=== PATIENT | female | born 1995 | race Caucasian/White ===

== ENCOUNTER 2019-08-10 07:32 | Inpatient (IN) | payer OTHER ==
[2019-08-10] MEDS ORDERED: RINGERS SOLUTION,LACTATED 1,000 ML IV PRN ×2 (07:47→09:12)
[2019-08-10] MEDS ORDERED: RINGERS SOLUTION,LACTATED 1,000 ML IV ONE (07:47)
[2019-08-10] MEDS ORDERED: CEFAZOLIN SODIUM 2 GM in DEXTROSE 5%-WATER 50 ML IV PRN (07:49)
--- NOTE | 2019-08-10 07:58 | Admission Physical ---
Datetime Report Generated by CPN: 08/10/2019 07:58 CURRENT ADMISSION Chief Complaint: Uterine Contractions; Suspected Ruptured Membranes Indication for Induction: Not Applicable Admit Impression : Term, Intrauterine ; Active Labor; Ruptured Membranes Admit Plan: Admit to Unit; Initiate Section Protocol ALLERGIES Medication Allergies: nickel/SV/rash (08/05/2019) OBSTETRICAL HISTORY EDC: 08/17/2019 00:00 : 1 Para: 0 Term: 0 : 0 SAB: 0 IAB: 0 [place] PHYSICAL EXAM General: Normal HEENT: Normal Neurologic: Normal Thyroid: Deferred Heart: Normal Lungs: Normal Breast: Deferred Back: Normal Abdomen: Normal Genitourinary Exam: Normal Extremities: Normal DTRs: Normal Pelvic Type: Adequate Vital Signs: Reviewed VAGINAL EXAM Dilatation: 6 Effacement: 100 Station: 1 Contraction Comments: q 3 MEMBRANES Membranes: Ruptured Amniotic Fluid Color: Clear FETUS A EGA: 39.0 Monitoring: External US FHR- Baseline: 125 Variability: Moderate 6-25bpm Accelerations: 15X15 Decelerations: None FHR Category: Category I Presentation: Breech Admit Comment: 23yo at 39+0ega presents with regular uterine contractions beginning at 0600 and patient reports that her membranes ruptured at 0710. Clear fluid. Pt is known to be breech. Cvx 6cm and baby buttocks at +1. Obvious rupture of membranes. COnsented for Primary section due to active labor/SROM/Breech presentation. GBS negative. Admit to labor and delivery for Primary section. INFORMED CONSENT Informed Consent Obtained: Vaginal Delivery; Section Delivery; Risks, Benefits and Alternatives Discussed Signature: with User ID: [email or web address]
[2019-08-10] MEDS ORDERED: CEFAZOLIN 1 GM/D5W RTU 2 GM/100 ML RTUPB IV ONE (08:07)
[2019-08-10] MEDS ORDERED: CITRIC ACID/SODIUM CITRATE ORAL SOLN 15 ML UDCUP ONE (08:07)
[2019-08-10] MEDS ORDERED: KETOROLAC TROMETHAMINE INJ/PF 30 MG/1 ML SDV ONE (08:13)
[2019-08-10] MEDS ORDERED: FENTANYL CITRATE INJ/PF 100 MCG/2 ML AMPUL ONE (08:13)
[2019-08-10] MEDS ORDERED: MIDAZOLAM 2 MG/2 ML INJ ONE (08:13)
[2019-08-10] MEDS ORDERED: OXYTOCIN 10 UNIT/ML VIAL ONE (08:13)
[2019-08-10] MEDS ORDERED: PHENYLEPHRINE HCL INJ/PF 10 MG/1 ML SDV ONE (08:13)
[2019-08-10] MEDS ORDERED: EPHEDRINE SULFATE INJ 50 MG/1 ML AMPULE ONE (08:13)
[2019-08-10] MEDS ORDERED: ONDANSETRON HCL INJ/PF 4 MG/2 ML SDV ONE (08:14)
[2019-08-10] MEDS ORDERED: ACETAMINOPHEN 1,000 MG/100 ML RTUPB IV ONE (08:14)
[2019-08-10] MEDS ORDERED: OXYTOCIN/0.9 % SODIUM CHLORIDE 30 UNIT/500 ML RTUINJ ONE (08:14)
[2019-08-10 08:45] LABS: ABSOLUTE BASOPHILS # (AUTO) 0.1 10^3/uL (0.0-0.2); ABSOLUTE EOSINOPHILS # (AUTO) 0.1 10^3/uL (0.0-0.6); ABSOLUTE LYMPHOCYTES (AUTO) 2.4 10^3/uL (0.5-4.7); ABSOLUTE MONOCYTES (AUTO) 0.7 10^3/uL (0.1-1.4); BASOPHILS % (AUTO) 0.6 % (0-2); EOSINOPHILS % (AUTO) 1.2 % (0-6); HEMOGLOBIN 11.6 g/dL (12.0-15.5); LYMPHOCYTES % (AUTO) 21.2 % (13-45); MEAN CORPUSCULAR HGB CONC 35.3 g/dL (32.0-36.0); MEAN CORPUSCULAR VOLUME 94 fl (80-97); MONOCYTES % (AUTO) 6.1 % (3-13); PLATELET COUNT 184 10^3/uL (150-450); RED BLOOD COUNT 3.53 10^6/uL (3.72-5.28); SEGMENTED NEUTROPHILS % (AUTO) 70.9 % (42-78); TOTAL CELLS COUNTED % (AUTO) 100 %; WHITE BLOOD COUNT 11.3 10^3/uL (4.0-10.5)
[2019-08-10] MEDS ORDERED: ACETAMINOPHEN 1,000 MG/100 ML RTUPB IV PRN (09:12)
[2019-08-10] MEDS ORDERED: OXYTOCIN/0.9 % SODIUM CHLORIDE 30 UNIT/500 ML RTUINJ IV PRN (09:12)
[2019-08-10] MEDS ORDERED: SIMETHICONE 80 MG TAB.CHEW PO PRN (09:12)
[2019-08-10] MEDS ORDERED: MEASLES,MUMPS&RUBELLA VACC/PF 0.5 ML VIAL SUBCUT PRN (09:12)
[2019-08-10] MEDS ORDERED: OXYCODONE-ACETAMINOPHEN 5-325 MG TABLET PO PRN (09:12)
[2019-08-10] MEDS ORDERED: DIPH/PERTUSS(ACELL)/TETANUS VAC/PF 0.5 ML SYR (>=10YO) IM PRN (09:12)
[2019-08-10] MEDS ORDERED: PROMETHAZINE HCL INJ 25 MG/1 ML VIAL IV PRN (09:12)
[2019-08-10] MEDS ORDERED: ACETAMINOPHEN 325 MG TABLET PO PRN (09:12)
[2019-08-10 09:20] LABS: APPEARANCE,URINE CLOUDY; BILIRUBIN,URINE NEGATIVE (NEGATIVE); COLOR,URINE YELLOW; GLUCOSE, URINE NEGATIVE (NEGATIVE); KETONES,URINE NEGATIVE (NEGATIVE); LEUKOCYTE ESTERASE,URINE NEGATIVE (NEGATIVE); NITRITE,URINE NEGATIVE (NEGATIVE); PROTEIN,URINE NEGATIVE (NEGATIVE); URINE SPECIFIC GRAVITY 1.014; UROBILINOGEN,URINE NEGATIVE mg/dL (<2.0)
--- NOTE | 2019-08-10 09:22 | Operative Report ---
Operative Report DATE OF SURGERY: 08/10/19 PREOPERATIVE DIAGNOSIS: Breech in labor POSTOPERATIVE DIAGNOSIS: Same OPERATION: Primary via low transverse uterine incision SURGEON: YRIS ADAMSON ANESTHESIA: Spinal TISSUE REMOVED OR ALTERED: Placenta COMPLICATIONS: None ESTIMATED BLOOD LOSS: 250 cc INTRAOPERATIVE FINDINGS: Breech female crying at delivery. Normal uterus tubes and ovaries PROCEDURE: Patient was taken to the OR and placed in supine position after her spinal anes thesia. She is prepared and draped in sterile fashion. Nuñez was placed for drainage of the bladder. Low transverse incision was made and carried down the level of the fascia. The fascial incision was made with knife and extended bilaterally with curved Chi scissors. The fascia was off the rectus muscles using sharp and blunt dissection. The rectus muscles are in the midline. The peritoneum was entered without incident. Bladder blade was placed in uterine segment was identified. A low transverse incision was made creating a bladder flap. Bladder blade was placed low transverse uterine incision was made with the knife and extended with fingertips. The baby was delivered with some fundal pressure in sohan breech fashion. Mouth and nose were suctioned free. The cord is doubly clamped and cut. Baby is passed off to the car seat upholsterer in attendance. The placenta was manually extracted with trailing membranes. The uterus was externalized wrapped in a moist lap sponge. Uterine contents wiped free. Uterus was closed with a running locking layer of 0 chromic suture using the second layer to imbricate the first completing a double layer closure of the uterus. The serosa was closed with a running 2-0 chromic stitch. The pelvis was irrigated and suctioned free of fluid the uterus was replaced in the abdomen. The abdominal wall peritoneum was closed with running 2-0 chromic stitch. Fascia was closed with a running 0 Vicryl in 2 segments. Jesus's layer was brought together with 0 plain gut stitch and the skin was closed with running subcuticular 4-0 undyed Vicryl stitch. The wound was dressed mother and baby did well.
[2019-08-10] MEDS ORDERED: DIPHENHYDRAMINE HCL 50 MG/ML VIAL ONE (09:35)
[2019-08-10 09:48] LABS: URINE AMPHETAMINES SCREEN NEGATIVE; URINE BARBITURATES SCREEN NEGATIVE; URINE BENZODIAZEPINES SCREEN NEGATIVE; URINE COCAINE SCREEN NEGATIVE; URINE MARIJUANA (THC) SCREEN NEGATIVE; URINE METHADONE SCREEN NEGATIVE; URINE PHENCYCLIDINE SCREEN NEGATIVE
--- NOTE | 2019-08-10 10:21 | Warning Signs in Babies ---
VOD Warning Signs Datetime Report Generated by KARINA: 08/10/2019 10:21 VOD#[id number] -Warning Signs in Babies: Needs to be viewed. (Annotations: Data stored by KARINA on behalf of user) (08/10/2019 07:48:Essence Hernandes RN)
[2019-08-10] MEDS ORDERED: MEPERIDINE HCL/PF INJ 25 MG/1 ML DISP.SYRIN ONE (10:25)
--- NOTE | 2019-08-10 10:52 | Delivery Summary ---
Del Sum A-C Datetime Report Generated by CPN: 08/10/2019 10:51 DELIVERY PERSONNEL DELIVERY PERSONNEL: [id number] Delivery Doctor:: Jorden Alvarez MD Anesthesiologist:: Dr. Robison PRODUCTION MAINTENANCE TECHNICIAN:: Vamshi Wooten CRNA Hospital Security Officer:: Essence Hernandes, GUME Senior Sales Operations Analyst/WIRELESS ARCHITECT: Sandra Daiz, ALVIN Senior Sales Operations Analyst/WIRELESS ARCHITECT: [facility] [place] Additional Personnel: : Shakeel Hanna RN MATERNAL INFORMATION Delivery Anesthesia: Spinal Medications After Delivery: Pitocin Bolus-Please Comment; Pitocin 30 Units in 500ml NS/D5W Meds After Delivery Comment: 2nd bag of Pitocin 20 units in 1000ml NS Delivery QBL: 380 Maternal Complications: None LABOR SUMMARY EDC: 08/17/2019 00:00 No. Babies in Womb: 1 Attempted: No Labor Anesthesia: None LABOR INFORMATION Oxytocin: N/A Group B Beta Strep: negative Antibiotics Time of Last Dose: 812 Name of Antibiotic Given: Ancef 2gm Steroids Given: None Reason Steroids Not Administered: Not Applicable MEMBRANES Membranes Rupture Method: Spontaneous Rupture of Membranes: 08/10/2019 07:10 Length of Rupture (hr): 1.45 Amniotic Fluid Color: Clear Amniotic Fluid Amount: Moderate Amniotic Fluid Odor: None STAGES OF LABOR Stage 3 hr: 0 Stage 3 min: 0 VAGINAL DELIVERY Episiotomy: None Laceration #1: None Laceration Extension #1: N/A Laceration Repair: Not Applicable Sponge Count Correct: N/A Sharps Count Correct: N/A CSECTION DELIVERY Primary Indication: Breech Presentation CSection Urgency: Non-Scheduled CSection Incidence: Primary Labor: N/A Elective: Elective CSection Incision: Lower Uterine Transverse BABY A INFORMATION Delivery Date/Time: 08/10/2019 08:37 Nurse Controlled Delivery: No Born in Route : No : N/A Forceps: N/A Vacuum Extraction: N/A Shoulder Dystocia : No PRESENTATION/POSITION BABY A Presentation: Breech PLACENTA INFORMATION BABY A Placenta Delivery Time : 08/10/2019 08:37 Placenta Method of Delivery: Manual Removal Placenta Status: Delivered SCORES BABY A Heart Rate 1 min: >100 bpm Resp Effort 1 min: Good Cry Reflex Irritability 1 min: Cough or Sneeze or Pulls Away Muscle Tone 1 min: Some Flexion of Extremities Color 1 min: Body [place], Extremities Blue Resuscitation Effort 1 min: Tactile Stimulation SCORE 1 MIN: 8 Heart Rate 5 min: >100 bpm Resp Effort 5 min: Good Cry Reflex Irritability 5 min: Cough or Sneeze or Pulls Away Muscle Tone 5 min: Active Motion Color 5 min: Body [place], Extremities Blue SCORE 5 MIN: 9 INFANT INFORMATION BABY A Gestational Age at Delivery: 39.0 Gestational Status: Full Term- 39- 40.6 Weeks Infant Outcome : Liveborn Condition : Stable Infant Sex: Female IDENTIFICATION BABY A Infant Verification Date/Time: 08/10/2019 08:45 ID Band Number: [id number] Mother's Name Verified: Yes Infant RN Verifying : TMartin,RN Additional Verifying Personnel: Angeline WEIGHT/LENGTH BABY A Birthweight (gm): 3435 Weight (lb): 7 Infant Weight (oz): 9 Infant Length (in): 20.00 Length (cm): 50.80 CORD INFORMATION BABY A No. Cord Vessels: 3 Nuchal Cord : N/A Cord Blood Taken: Yes-For Storage (Mom's Blood type +) Infant Suction: None ASSESSMENT BABY A Skin to Skin: Yes BABY B INFORMATION : N/A
[2019-08-10] MEDS: DOCUSATE SODIUM 100 MG CAPSULE PO SCH ×2 (11:46→18:10)
[2019-08-10] MEDS: PRENATAL VITAMIN W DHA CAPSULE PO SCH (11:46)
[2019-08-10] MEDS: OXYCODONE-ACETAMINOPHEN 5-325 MG TABLET PO PRN ×2 (12:25→21:35)
[2019-08-10] MEDS ORDERED: KETOROLAC TROMETHAMINE INJ/PF 30 MG/1 ML SDV IV SCH (14:00)
[2019-08-10] MEDS ORDERED: HYDROMORPHONE HCL INJ/PF 2 MG/ML AMPULE ONE (14:09)
[2019-08-10] MEDS: KETOROLAC TROMETHAMINE INJ/PF 30 MG/1 ML SDV IV SCH (18:10)
[2019-08-11] MEDS: KETOROLAC TROMETHAMINE INJ/PF 30 MG/1 ML SDV IV SCH (02:53)
[2019-08-11 06:24] LABS: HEMATOCRIT 26.5 % (36.0-47.0); MEAN CORPUSCULAR HEMOGLOBIN 33.8 pg (27.0-33.4); MEAN CORPUSCULAR HGB CONC 35.6 g/dL (32.0-36.0); MEAN CORPUSCULAR VOLUME 95 fl (80-97); PLATELET COUNT 144 10^3/uL (150-450); RED BLOOD COUNT 2.79 10^6/uL (3.72-5.28); WHITE BLOOD COUNT 10.8 10^3/uL (4.0-10.5)
[2019-08-11 06:25] LABS: HEMOGLOBIN 9.4 g/dL (12.0-15.5)
[2019-08-11] MEDS: OXYCODONE-ACETAMINOPHEN 5-325 MG TABLET PO PRN ×3 (07:12→21:33)
[2019-08-11] MEDS: PRENATAL VITAMIN W DHA CAPSULE PO SCH (09:46)
[2019-08-11] MEDS: DOCUSATE SODIUM 100 MG CAPSULE PO SCH ×2 (09:46→17:14)
--- NOTE | 2019-08-11 11:04 | PDOC PROGRESS REPORT ---
Subjective-OB Progress Note for:: 08/11/19 Subjective: Pt doing well. No concerns. She reports light bleeding, reg diet and voiding without difficulty. Physical Exam (OB) Vital Signs: Temp Pulse Resp BP Pulse Ox 98.2 F 73 18 134/78 H 99 08/11/19 07:06 08/11/19 07:06 08/11/19 07:06 08/11/19 07:06 08/11/19 07:06 Intake & Output 08/10/19 08/11/19 08/12/19 06:59 06:59 06:59 Output Total 1999 Balance -1999 Weight 80.739 kg - Dressing Removed: Yes Incision: Well Approximated Closure Type: opsite - Lochia Lochia Amount: Small 10-25 ml Lochia Color: Rubra/Red - Abdomen Description: Soft Hernia Present: No Fundal Description: Firm, Midline Fundal Height: u/u - u/2 Objective-Diagnostic Laboratory: 08/11/19 06:02 08/11/19 06:02 WBC 10.8 H RBC 2.79 L Hgb 9.4 L D Hct 26.5 L MCV 95 MCH 33.8 H MCHC 35.6 RDW 13.0 Plt Count 144 L Assessment and Plan(PN) - Assessment and Plan (1) Active labor at term Is this a current diagnosis for this admission?: Yes (2) Breech presentation Qualifiers: Fetus number: single or unspecified fetus Qualified Code(s): O32.1XX0 - Maternal care for breech presentation, not applicable or unspecified Is this a current diagnosis for this admission?: Yes (3) Spontaneous rupture of amniotic membranes Is this a current diagnosis for this admission?: Yes (4) Status post primary low transverse section Is this a current diagnosis for this admission?: Yes - Time Spent with Patient Time with patient: Less than 15 minutes Medications reviewed and adjusted accordingly: Yes - Disposition Anticipated Discharge: Home Within: within 24 hours
[2019-08-11] MEDS: IBUPROFEN 800 MG TABLET PO SCH ×2 (12:57→17:14)
[2019-08-12] MEDS: IBUPROFEN 800 MG TABLET PO SCH ×4 (00:51→17:18)
[2019-08-12] MEDS: OXYCODONE-ACETAMINOPHEN 5-325 MG TABLET PO PRN (03:52)
[2019-08-12] MEDS: PRENATAL VITAMIN W DHA CAPSULE PO SCH (09:11)
[2019-08-12] MEDS: DOCUSATE SODIUM 100 MG CAPSULE PO SCH ×2 (09:11→17:18)
--- NOTE | 2019-08-12 11:27 | PDOC DISCHARGE SUMMARY ---
Impression - Admit/DC Date/PCP Admission Date/Primary Care Provider: 08/10/19 07:51 YRIS ADAMSON MD Discharge Date: 08/12/19 - Discharge Diagnosis (1) Status post primary low transverse section Is this a current diagnosis for this admission?: Yes (2) Active labor at term Is this a current diagnosis for this admission?: Yes (3) Breech presentation Is this a current diagnosis for this admission?: Yes (4) Spontaneous rupture of amniotic membranes Is this a current diagnosis for this admission?: Yes - Additional Information Discharge Diet: Regular Discharge Activity: Activity As Tolerated, Balance Activity w/Rest, No Driving, No Lifting Over 10 Pounds, No Lifting/Push/Pulling, Pelvic Rest, Slowly Increase Activity, No tub bath Referrals: YRIS ADAMSON MD [Primary Care Provider] - Prescriptions: Ibuprofen [Motrin 800 mg Tablet] 800 mg PO Q8HP PRN #60 tablet PRN Reason: Oxycodone HCl/Acetaminophen [Percocet 5-325 mg Tablet] 1 tab PO Q4HP PRN #30 tablet PRN Reason: Home Medications: Docusate Sodium [Colace 100 mg Capsule] 100 mg PO BID capsule 08/12/19 Ibuprofen [Motrin 800 mg Tablet] 800 mg PO Q8HP PRN #60 tablet 08/12/19 Oxycodone HCl/Acetaminophen [Percocet 5-325 mg Tablet] 1 tab PO Q4HP PRN #30 tablet 08/12/19 Results Laboratory Results: WBC 10.8 10^3/uL (4.0-10.5) H 08/11/19 06:02 RBC 2.79 10^6/uL (3.72-5.28) L 08/11/19 06:02 Hgb 9.4 g/dL (12.0-15.5) L D 08/11/19 06:02 Hct 26.5 % (36.0-47.0) L 08/11/19 06:02 MCV 95 fl (80-97) 08/11/19 06:02 MCH 33.8 pg (27.0-33.4) H 08/11/19 06:02 MCHC 35.6 g/dL (32.0-36.0) 08/11/19 06:02 RDW 13.0 % (11.5-14.0) 08/11/19 06:02 Plt Count 144 10^3/uL (150-450) L 08/11/19 06:02 Lymph % (Auto) 21.2 % (13-45) 08/10/19 08:28 [place] % (Auto) 6.1 % (3-13) 08/10/19 08:28 Eos % (Auto) 1.2 % (0-6) 08/10/19 08:28 Baso % (Auto) 0.6 % (0-2) 08/10/19 08:28 Absolute Neuts (auto) 8.0 10^3/uL (1.7-8.2) 08/10/19 08: Absolute Lymphs (auto) 2.4 10^3/uL (0.5-4.7) 08/10/19 08:28 Absolute Monos (auto) 0.7 10^3/uL (0.1-1.4) 08/10/19 08:28 Absolute Eos (auto) 0.1 10^3/uL (0.0-0.6) 08/10/19 08:28 Absolute Basos (auto) 0.1 10^3/uL (0.0-0.2) 08/10/19 08:28 Seg Neutrophils % 70.9 % (42-78) 08/10/19 08:28 Urine Color YELLOW 08/10/19 08:03 Urine Appearance CLOUDY 08/10/19 08:03 Urine pH 6.0 (5.0-9.0) 08/10/19 08:03 Ur Specific [place] 1.014 08/10/19 08:03 Urine Protein NEGATIVE mg/dL (NEGATIVE) 08/10/19 08:03 Urine Glucose (UA) NEGATIVE mg/dL (NEGATIVE) 08/10/19 08:03 Urine Ketones NEGATIVE mg/dL (NEGATIVE) 08/10/19 08:03 Urine Blood LARGE (NEGATIVE) H 08/10/19 08:03 Urine Nitrite NEGATIVE (NEGATIVE) 08/10/19 08:03 Urine Bilirubin NEGATIVE (NEGATIVE) 08/10/19 08:03 Urine Urobilinogen NEGATIVE mg/dL (<2.0) 08/10/19 08:03 Ur Leukocyte Esterase NEGATIVE (NEGATIVE) 08/10/19 08:03 Urine Ascorbic Acid NEGATIVE (NEGATIVE) 08/10/19 08:03 Urine Opiates Screen NEGATIVE 08/10/19 08:03 Urine Methadone Screen NEGATIVE 08/10/19 08:03 Ur Barbiturates Screen NEGATIVE 08/10/19 08:03 Ur Phencyclidine Scrn NEGATIVE 08/10/19 08:03 Ur Amphetamines Screen NEGATIVE 08/10/19 08:03 U Benzodiazepines Scrn NEGATIVE 08/10/19 08:03 Urine Cocaine Screen NEGATIVE 08/10/19 08:03 U Marijuana (THC) Screen NEGATIVE 08/10/19 08:03 RPR NONREACTIVE (NONREACTIVE) 08/10/19 08:28 Blood Type A POSITIVE 08/10/19 08:28 Antibody Screen NEGATIVE 08/10/19 08:28 Plan Plan of Treatment: follow up as scheduled for post check/incision check
[2019-08-12 11:33] VITALS: BP 129/85
[2019-08-12] MEDS ORDERED: MEASLES,MUMPS&RUBELLA VACC/PF 0.5 ML VIAL SUBCUT PRN (13:00)
[2019-08-12] MEDS ORDERED: PROMETHAZINE HCL INJ 25 MG/1 ML VIAL IV PRN (13:00)
[2019-08-12] MEDS ORDERED: DIPH/PERTUSS(ACELL)/TETANUS VAC/PF 0.5 ML SYR (>=10YO) IM PRN (13:00)
== END 2019-08-12 18:45 | disposition home or self-care (01) | DRG 788 ==
LOC: LC 07:32 → LR 07:51 → 2S 12:20
PROVIDERS: ADMIT Obstetrics & Gynecology; ATTEND Obstetrics & Gynecology
PROC: 10D00Z1 Extraction of Products of Conception, Low, Open Approach (ICD-10-PCS; principal; 2019-08-10)
DX: O32.1XX0 Maternal care for breech presentation, not applicable or unspecified (principal); Z3A.39 39 weeks gestation of pregnancy; Z37.0 Single live birth
CPT/HCPCS: 1961; 36415; 80307; 81005; 85025; 85027; 86592; 86850; 86900; 86901; 94760; 94799; 99140; J0131; J0690; J1170; J1200; J1885; J2175; J2250; J2370; J2405; J2590; J3010; J3490; J7060